=== PATIENT | female | born 1985 | race Two or more races ===

== ENCOUNTER 2017-12-12 19:43 | Emergency (ER) | payer OTHER ==
[~2017-12-12] VITALS: Ht 167.6 cm; Wt 54.4 kg
[2017-12-12 20:00] VITALS: BP 85/55
[2017-12-12] MEDS ORDERED: Morphine Sulfate 4mg/ml Inj IVP ONE ×2 (20:15→22:15)
[2017-12-12 21:41] VITALS: BP 114/75
--- NOTE | 2017-12-12 21:48 | Diagnostic Imaging Report ---
EXAM: CT Pelvis Without Intravenous Contrast CLINICAL HISTORY: Left hip and back pain for one week. Status post fall. TECHNIQUE: Axial computed tomography images of the pelvis without intravenous contrast. CTDI for this exam and the CT of the lumbar spine is 0.25, 0. 25, 14.2, 11.25 mGy and DLP is 830 mGy-cm. One or more of the following dose reduction techniques were used: automated exposure control, adjustment of the mA and/or kV according to patient size, use of iterative reconstruction technique. COMPARISON: No relevant prior studies available. FINDINGS: Bowel: Moderate amount of stool in the rectosigmoid colon. No obstruction. No mucosal thickening. Appendix: The appendix is unremarkable. Intraperitoneal space: Unremarkable. No free air. No significant fluid collection. Bladder: Unremarkable. No stones. Reproductive: Fluid in the vagina. Bones/joints: Mild irregularity of the sacroiliac joints. Sacroiliitis cannot be excluded. No definite CT evidence for acute fracture. Soft tissue density anterior to the left hip with some fluid density centrally. This is in the region of disorganized bony overgrowth. An acute infectious/inflammatory process cannot be excluded. The fluid density measures approximately 2.4 x 1.3 cm in maximum transverse dimensions. Large disorganized bony growths extending from the proximal aspects of the left femur and left iliac bone consistent with chronic changes. This may be related to prior trauma. No dislocation. Soft tissues: See above. Vasculature: Unremarkable. No lower abdominal aortic aneurysm. Lymph nodes: Unremarkable. No enlarged lymph nodes. IMPRESSION: 1. Mild irregularity of the sacroiliac joints. Sacroiliitis cannot be excluded. 2. No definite CT evidence for acute fracture. 3. Soft tissue density anterior to the left hip with some fluid density centrally. This is in the region of the disorganized bony overgrowth. An acute infectious/inflammatory process cannot be excluded. The fluid density measures approximately 2.4 x 1.3 cm in maximum transverse dimensions.
--- NOTE | 2017-12-12 21:53 | Diagnostic Imaging Report ---
EXAM: CT Lumbar Spine Without Intravenous Contrast CLINICAL HISTORY: Left hip and back pain for one week. Status post fall. TECHNIQUE: Axial computed tomography images of the lumbar spine without intravenous contrast. CTDI for this exam and the CT of the pelvis is 0. 25, 0.25, 14.2, 11.25 mGy and DLP is 830 mGy-cm. One or more of the following dose reduction techniques were used: automated exposure control, adjustment of the mA and/or kV according to patient size, use of iterative reconstruction technique. Coronal and sagittal reformatted images were created and reviewed. COMPARISON: No relevant prior studies available. FINDINGS: Vertebrae: No evidence for lumbar spine fracture. The vertebral alignment is normal. Discs/spinal canal/neural foramina: No acute findings. Soft tissues: Unremarkable for a noncontrast CT. Vasculature: IVC filter below the level of the renal veins. Other findings: Mild irregularity of the sacroiliac joints. Sacroiliitis cannot be excluded. IMPRESSION: 1. Mild irregularity of the sacroiliac joints. Sacroiliitis cannot be excluded. 2. No evidence for lumbar spine fracture.
[2017-12-12] MEDS ORDERED: NORCO 5-325 TA1 EACH ORAL (22:07)
[2017-12-12] MEDS ORDERED: Ketorolac 30mg Inj IV ONE (22:15)
[2017-12-12 23:10] VITALS: BP 114/75
--- NOTE | 2017-12-13 17:19 | Emergency Room Report ---
History of Present Illness General Chief Complaint: Multiple Trauma/Fall Source: Patient Present Illness HPI 32-year-old female presents ED complaining of left hip pain, back pain status post fall times one week. Patient fell from her wheelchair. Patient is quadriplegic and wheelchair-bound. Patient states pain is 10 out of 10, sharp, nonradiating. Denies any other injuries. No other aggravating relieving factors. Denies any other signs of symptoms Allergies: Coded Allergies: PENICILLINS (Verified Allergy, Unknown, 12/12/17) Patient History Past Medical History: asthma, other - quadriplegic Past Surgical History: none Pertinent Family History: none Social History: Denies: smoking, alcohol use, drug use Last Menstrual Period: 11/27/17 Now: No Immunizations: UTD Reviewed Nursing Documentation: PMH: Agreed; PSxH: Agreed Nursing Documentation-PMH Past Medical History: No History, Except For Hx Asthma: Yes Hx Neurological Problems: Yes - Quadriplegic Review of Systems All Other Systems: negative except mentioned in HPI Physical Exam Vital Signs Date Time Temp Pulse Resp B/P (MAP) Pulse Ox O2 Delivery O2 Flow Rate FiO2 12/12/17 19:51 98.1 76 16 85/55 99 Room Air 98.1 Sp02 EP Interpretation: reviewed, normal General Appearance: alert, GCS 15, non-toxic, moderate distress Head: normocephalic, atraumatic Eyes: bilateral eye normal inspection, bilateral eye PERRL ENT: hearing grossly normal, normal pharynx, no angioedema, normal voice Neck: full range of motion, supple/symm/no masses Respiratory: chest non-tender, lungs clear, normal breath sounds, speaking full sentences Cardiovascular #1: regular rate, rhythm, no edema Cardiovascular #2: 2+ carotid (R), 2+ carotid (L), 2+ radial (R), 2+ radial (L) , 2+ dorsalis pedis (R), 2+ dorsalis pedis (L) Gastrointestinal: normal bowel sounds, non tender, soft, non-distended, no guarding, no rebound Rectal: deferred Genitourinary: normal inspection, no CVA tenderness, vertebral tenderness Musculoskeletal: tender - L hip, L proximal femur Neurologic: alert, oriented x3, responsive, sensory intact, speech normal Psychiatric: judgement/insight normal, memory normal, mood/affect normal, no suicidal/homicidal ideation Reflexes: 3+ bicep (R), 3+ bicep (L), 3+ tricep (R), 3+ tricep (L), 3+ knee (R) , 3+ knee (L) Skin: normal color, no rash, warm/dry, well hydrated Lymphatic: no adenopathy Medical Decision Making Diagnostic Impression: Primary Impression: Hip injury Qualified Codes: S79.912A - Unspecified injury of left hip, initial encounter Additional Impression: Chronic pain Qualified Codes: G89.29 - Other chronic pain ER Course Hospital Course 32-year-old female presents ED complaining of left hip and proximal femur pain status post fall times one week. Differential diagnoses include: Fracture, dislocation, sprain, contusion Clinical course Patient placed on stretcher. After initial history and physical, I ordered pain medications and CT Lspine and Pelvis CT L-spine unremarkable. CT pelvis shows disorganized bony overgrowth of the left proximal femur. No acute fracture Discussed findings with the patient. Patient is requesting additional pain medication. Findings are chronic. Patient states she is aware of these findings and was scheduled to have surgery to "shaved the hip" but her insurance lapsed. She is very frustrated she goes from Hospital to Hospital because of the pain. I explained to patient that her best course of action is through pain management and to see orthopedics as an outpatient. She has multiple doctors already involved in her care Diagnosis - hip injury, chronic pain Stable and discharged to home with prescription for [place]. Followup with PMD. Return to ED if symptoms recur or worsen CT/MRI/US Diagnostic Results CT/MRI/US Diagnostic Results #1: Imaging Test Ordered: CT L spine Impression no acute process CT/MRI/US Diagnostic Results #2: Imaging Test Ordered: CT Pelvis Impression no fx, bony overgrowth disorganized in L proximal femur Last Vital Signs Date Time Temp Pulse Resp B/P (MAP) Pulse Ox O2 Delivery O2 Flow Rate FiO2 12/12/17 23:10 97.9 60 16 114/75 98 Room Air 97.9 Status: improved Disposition: HOME, SELF-CARE Condition: Stable Scripts Hydrocodone Bit/Acetaminophen 5-325* (NORCO 5-325*) 1 Each Tablet 1 TAB ORAL Q6H PRN for For Pain, #20 TAB 0 Refills Prov: Cameron Castle MD 12/12/17 Patient Instructions: Hip Pain [place],Cameron MD Dec 13, 2017 17:19
== END 2017-12-12 23:10 | disposition home or self-care (01) ==
LOC: EMR 20:11
DX: S79.912A Unspecified injury of left hip, initial encounter (principal); G89.29 Other chronic pain; J45.909 Unspecified asthma, uncomplicated; G82.50 Quadriplegia, unspecified; Z88.0 Allergy status to penicillin; W05.0XXA Fall from non-moving wheelchair, initial encounter; Y92.9 Unspecified place or not applicable
CPT/HCPCS: 72131; 72192; 96374; 96375; 99284; J1885; J2270